=== PATIENT | male | born 1990 | race American Indian/Alaskan Native ===

== ENCOUNTER 2016-12-10 18:44 | Emergency (ER) | payer SELFPAY ==
[2016-12-10] MEDS ORDERED: DUONEB 0.5 MG-3 MG/3 ML SOLN IH ONE (22:54)
[2016-12-10] MEDS ORDERED: ATROVENT IH ONE (22:54)
[2016-12-10] MEDS: DUONEB 0.5 MG-3 MG/3 ML SOLN IH ONE ×2 (23:02→23:03)
[2016-12-11] MEDS ORDERED: DELTASONE PO ONE (00:18)
--- NOTE | 2016-12-11 00:18 | Emergency Department Report ---
ED Asthma HPI - General Chief Complaint: Adult Asthma Stated Complaint: ASTHMA Time Seen by Provider: 12/11/16 00:17 Source: patient Mode of arrival: Ambulatory Limitations: No Limitations - History of Present Illness Initial Comments: Patient here reports chest tightness and cough 3 hours Prior to coming to the emergency room. He denies any fever or chills. Denies any nausea vomiting or diarrhea. He said that he was getting no relief with his inhaler and he ran out of his prescription for Symbicort and albuterol. He reported to Triage nurse that he was on Spiriva. He said he is on Symbicort. He denies any difficulty breathing. MD Complaint: "asthma attack", wheezing Onset/Timin -: hour(s) Asthma History: history of frequent attac, history of prior ED visit Severity: similar to prior Context: recent URI, ran out of meds Associated Symptoms: dry cough Treatments Prior to Arrival: inhaled bronchodilator - Related Data Current Asthma Therapy: inhaled bronchodilator Previous Rx's Medication Instructions Recorded Last Taken Type Cetirizine HCl [ZyrTEC] 10 mg PO DAILY #30 capsule 10/31/16 Unknown Rx Fluticasone/Salmeterol [Advair 0 each IH DAILY #1 blst.w.dev 10/31/16 Unknown Rx 250-50 Diskus] ALBUTEROL NEB's [Proventil 0.083% 2.5 mg IH Q4-6H PRN #1 box 12/11/16 Unknown Rx NEBS] Albuterol Sulfate [Ventolin HFA] 2 puff IH Q4H PRN #1 inh 12/11/16 Unknown Rx Budesoni/Formoterol 80-4.5(Nf) 2 puff IH BID #1 inha 12/11/16 Unknown Rx [Symbicort 80-4.5 (Nf)] Prednisone [predniSONE 10 mg 10 mg PO .TAPER #1 tab.ds.pk 12/11/16 Unknown Rx (6-Day Pack, 21 Tabs)] Allergies Allergy/AdvReac Type Severity Reaction Status Date / Time No Known Allergies Allergy Verified 10/30/16 21:52 ED Review of Systems ROS: Stated complaint: ASTHMA Other details as noted in HPI Comment: All other systems reviewed and negative Constitutional: denies: chills, fever ENT: congestion. denies: throat pain Respiratory: cough, wheezing. denies: shortness of breath, SOB with exertion, SOB at rest, stridor Cardiovascular: chest pain (chest tightness with coughing). denies: palpitations, dyspnea on exertion, edema, syncope Gastrointestinal: denies: abdominal pain, nausea, vomiting, diarrhea Musculoskeletal: denies: back pain, arthralgia Skin: denies: rash Neurological: denies: headache ED Past Medical Hx - Past Medical History Previous Medical History?: Yes Hx Asthma: Yes - Surgical History Past Surgical History?: Yes Additional Surgical History: right finger - Family History Family history: no significant - Social History Smoking Status: Never Smoker Substance Use Type: Alcohol - Medications Home Medications: Home Medications Medication Instructions Recorded Confirmed Last Taken Type Cetirizine HCl [ZyrTEC] 10 mg PO DAILY #30 capsule 10/31/16 Unknown Rx Fluticasone/Salmeterol [Advair 0 each IH DAILY #1 blst.w.dev 10/31/16 Unknown Rx 250-50 Diskus] ALBUTEROL NEB's [Proventil 0.083% 2.5 mg IH Q4-6H PRN #1 box 12/11/16 Unknown Rx NEBS] Albuterol Sulfate [Ventolin HFA] 2 puff IH Q4H PRN #1 inh 12/11/16 Unknown Rx Budesoni/Formoterol 80-4.5(Nf) 2 puff IH BID #1 inha 12/11/16 Unknown Rx [Symbicort 80-4.5 (Nf)] Prednisone [predniSONE 10 mg 10 mg PO .TAPER #1 tab.ds.pk 12/11/16 Unknown Rx (6-Day Pack, 21 Tabs)] ED Physical Exam - General Limitations: No Limitations General appearance: alert, in no apparent distress - Head Head exam: Present: atraumatic, normocephalic, normal inspection - Eye Eye exam: Present: normal appearance, PERRL, EOMI. Absent: periorbital swelling , periorbital tenderness Pupils: Present: normal accommodation - ENT ENT exam: Present: normal exam, normal orophraynx, mucous membranes moist. Absent: TM's normal bilaterally, normal external ear exam - Neck Neck exam: Present: normal inspection, full ROM. Absent: tenderness, lymphadenopathy - Respiratory Respiratory exam: Present: wheezes, other (dry cough). Absent: respiratory distress, rales, rhonchi, stridor, chest wall tenderness - Cardiovascular Cardiovascular Exam: Present: regular rate, normal rhythm, normal heart sounds - GI/Abdominal GI/Abdominal exam: Present: soft, normal bowel sounds. Absent: distended, tenderness, guarding, rebound, rigid - Extremities Exam Extremities exam: Present: normal inspection, full ROM, normal capillary refill. Absent: tenderness, pedal edema, joint swelling - Neurological Exam Neurological exam: Present: alert, oriented X3, normal gait - Psychiatric Psychiatric exam: Present: normal affect, normal mood - Skin Skin exam: Present: warm, dry, intact, normal color. Absent: rash ED Course Vital Signs 12/10/16 12/10/16 20:48 23:06 Temperature 98.2 F Pulse Rate 95 H Pulse Rate [ 94 H Throughout] Respiratory 20 Rate Respiratory 16 Rate [ Throughout] Blood Pressure 141/76 O2 Sat by Pulse 97 Oximetry Vital Signs 12/10/16 12/10/16 12/11/16 20:48 23:06 01:29 Temperature 98.2 F 99.0 F Pulse Rate 95 H 84 Pulse Rate [ 94 H Throughout] Respiratory 20 20 Rate Respiratory 16 Rate [ Throughout] Blood Pressure 141/76 Blood Pressure 118/70 [Left] O2 Sat by Pulse 97 98 Oximetry - Reevaluation(s) Reevaluation #1: 12/11/16 01:19 Patient received nebulizer treatment along with steroids and emergency room. Upon reevaluation, lungs sounds clear and patient said is feeling better. ED Medical Decision Making - Medical Decision Making ED course: Patient received DuoNeb times one treatment in triage area and said he wasn't feeling better. She received albuterol 10 mg along with Xopenex 0.5 mg in emergency room. He Also received Deltasone 60 mg by mouth. Upon reevaluation patient said he was feeling much better and is ready to go. I discussed the patient that he needs to follow-up with primary care physician in 2-3 days and if he does not have a primary care physician that he needs to follow-up with outside Medical Center or return to the emergency room if symptoms return. Discharged home with prescription for albuterol inhaler, albuterol nebulizer, prednisone and Symbicort. He voiced understanding of follow-up instructions. Critical care attestation.: If time is entered above; I have spent that time in minutes in the direct care of this critically ill patient, excluding procedure time. ED Disposition Clinical Impression: Acute asthma exacerbation Qualifiers: Asthma severity: moderate persistent Qualified Code(s): J45.41 - Moderate persistent asthma with (acute) exacerbation Disposition: DISCHARGED TO HOME OR SELFCARE Is pt being admited?: No Does the pt Need Aspirin: No Condition: Stable Instructions: Asthma (ED) Additional Instructions: Please return to the emergency room if his symptoms worsen or does not get better with nebulizer treatment. Please his medication as prescribed. Follow-up with primary care physician or outside Medical Center as discussed Prescriptions: ALBUTEROL NEB's [Proventil 0.083% NEBS] 2.5 mg IH Q4-6H PRN #1 box PRN Reason: Wheezing Budesoni/Formoterol 80-4.5(Nf) [Symbicort 80-4.5 (Nf)] 2 puff IH BID #1 inha Albuterol Sulfate [Ventolin HFA] 2 puff IH Q4H PRN #1 inh PRN Reason: Wheezing Prednisone [predniSONE 10 mg (6-Day Pack, 21 Tabs)] 10 mg PO .TAPER #1 tab.ds.pk Referrals: PRIMARY CARE, [Primary Care Provider] - 2-3 Days [facility] [Outside] - 2-3 Days Forms: Work/School Release Form(ED), Accompanied Note
[2016-12-11 01:30] VITALS: BP 118/70
== END 2016-12-11 01:31 | disposition home or self-care (01) ==
LOC: ED 18:44
DX: J45.41 Moderate persistent asthma with (acute) exacerbation (principal)
CPT/HCPCS: 94640; 99283; J7512

== ENCOUNTER 2016-12-29 13:40 | Emergency (ER) | payer SELFPAY ==
--- NOTE | 2016-12-29 13:49 | Emergency Department Report ---
Stated Complaint: ASTHMA ATTACK Time Seen by Provider: 12/29/16 13:44 - HPI History of Present Illness: Patient is a 26-year-old male with a history of asthma who presents to ED complaining of asthma exacerbation times today. Patient states he was at work when he started to feel shortness of breath patient states he slipped his rescue name of but did not work. Patient states he has had an side in a long time. Patient takes states he vomited prednisone but has been out of his medication. Patient states he did not get better and shortness of breath got worse so he called the ambulance and was brought to the ER. Patient denies fever/chills/nausea/vomiting/prior illness/chest pain/abdominal pain - ROS Review of Systems: As noted in HPI - Exam Physical Exam: GENERAL: Alert and oriented x3, in some mild respiratory distress, Normal Gait, atraumatic. HEAD: Head is normocephalic and a-traumatic. MOUTH:Mouth is well hydrated and without lesions. Tonsils nonerythematous or swollen, Uvula midline, Tongue not elevated. Mucous membranes are moist. Posterior pharynx clear, no exudate or lesions. Patent airways. LUNGS: Symetrical with respiration, wheezing bilaterally anterior and posterior , no rales or crackles, no use of accessory muscles HEART: S1, S2 present, regular rate and rhythm without murmur, no rubs, no gallops. ABDOMEN: No organomegaly was noted,Positive bowel sounds, soft, and non- distended. . Nontender to palpation on all Quadrants, NO CVA tenderness. SKIN: Diaphoretic forehead Warm, No lesions, No ulceration or induration present. MSE screening note: Focused history and physical exam performed. Due to findings the following was ordered: ED Medical Decision Making - Medical Decision Making 26-year-old male presents with asthma exacerbation. Tachypneic and tachycardiac with elevated blood pressure. O2 nasal cannula placed Respiratory called for a breathing treatment of DuoNeb. Solu-Medrol 125 mg IM ordered. Administered. Reassess patient in 20-30 minutes, lung exam and repeat vital signs ED Disposition for MSE Condition: Stable
[2016-12-29] MEDS: DUONEB 0.5 MG-3 MG/3 ML SOLN IH ONE ×2 (14:05→14:50)
[2016-12-29] MEDS ORDERED: PROVENTIL IH ONE ×4 (14:20→17:08)
[2016-12-29] MEDS ORDERED: MAGNESIUM SULFATE 2GM/50ML 2 GM in D5W 100 ML IV ONE (15:04)
--- NOTE | 2016-12-29 15:20 | Emergency Department Report ---
ED Shortness of Breath HPI - General Chief Complaint: Dyspnea/Respdistress Stated Complaint: ASTHMA ATTACK Time Seen by Provider: 12/29/16 14:57 Source: patient Mode of arrival: Ambulatory Limitations: No Limitations - History of Present Illness Initial Comments: 26-year-old male presents to the emergency department complaining of difficulty breathing beginning at approximately noon today. Patient reports chest tightness and wheezing. There has been cough productive of white frothy sputum. Patient denies fever. Patient has been using his albuterol inhaler without relief. Patient states he has never had to be placed on a ventilator before. There are no other complaints. Prior to being placed in a room, the patient was administered 125 mg of Solu-Medrol, 20 mg of albuterol, and a total of 1 mg of Atrovent. Complaint: "asthma attack" -: Sudden, This afternoon Time: 12:00 Pain Scale: 0 Consistency: constant Improves With: nothing Worsens With: nothing Known History Of: asthma Associated Symptoms: chest pain (tightness), cough - Related Data Previous Rx's Medication Instructions Recorded Last Taken Type Cetirizine HCl [ZyrTEC] 10 mg PO DAILY #30 capsule 10/31/16 Unknown Rx Fluticasone/Salmeterol [Advair 0 each IH DAILY #1 blst.w.dev 10/31/16 Unknown Rx 250-50 Diskus] ALBUTEROL NEB's [Proventil 0.083% 2.5 mg IH Q4-6H PRN #1 box 12/11/16 Unknown Rx NEBS] Budesoni/Formoterol 80-4.5(Nf) 2 puff IH BID #1 inha 12/11/16 Unknown Rx [Symbicort 80-4.5 (Nf)] Albuterol Sulfate [Ventolin HFA] 2 puff IH Q4H PRN #1 inh 12/29/16 Unknown Rx predniSONE [Deltasone] 3 tab PO QDAY #15 tab 12/29/16 Unknown Rx Allergies Allergy/AdvReac Type Severity Reaction Status Date / Time No Known Allergies Allergy Verified 10/30/16 21:52 ED Review of Systems ROS: Stated complaint: ASTHMA ATTACK Other details as noted in HPI Comment: All other systems reviewed and negative Respiratory: cough, shortness of breath, wheezing Cardiovascular: chest pain ED Past Medical Hx - Past Medical History Previous Medical History?: Yes Hx Asthma: Yes - Surgical History Past Surgical History?: Yes Additional Surgical History: right finger - Family History Family history: no significant - Social History Smoking Status: Never Smoker Substance Use Type: None - Medications Home Medications: Home Medications Medication Instructions Recorded Confirmed Last Taken Type Cetirizine HCl [ZyrTEC] 10 mg PO DAILY #30 capsule 10/31/16 Unknown Rx Fluticasone/Salmeterol [Advair 0 each IH DAILY #1 blst.w.dev 10/31/16 Unknown Rx 250-50 Diskus] ALBUTEROL NEB's [Proventil 0.083% 2.5 mg IH Q4-6H PRN #1 box 12/11/16 Unknown Rx NEBS] Budesoni/Formoterol 80-4.5(Nf) 2 puff IH BID #1 inha 12/11/16 Unknown Rx [Symbicort 80-4.5 (Nf)] Albuterol Sulfate [Ventolin HFA] 2 puff IH Q4H PRN #1 inh 12/29/16 Unknown Rx predniSONE [Deltasone] 3 tab PO QDAY #15 tab 12/29/16 Unknown Rx ED Physical Exam - General Limitations: No Limitations General appearance: alert, in distress (mild respiratory distress) - Head Head exam: Present: atraumatic, normocephalic - Eye Eye exam: Present: normal appearance, PERRL, EOMI - ENT ENT exam: Present: normal exam, normal orophraynx, mucous membranes moist - Neck Neck exam: Present: normal inspection, full ROM. Absent: tenderness - Respiratory Respiratory exam: Present: respiratory distress (moderate tachypnea), wheezes ( faint expiratory wheezes noted diffuse bilateral posterior), decreased breath sounds (diffuse bilateral posterior) - Cardiovascular Cardiovascular Exam: Present: normal rhythm, tachycardia, normal heart sounds - GI/Abdominal GI/Abdominal exam: Present: soft, normal bowel sounds. Absent: distended, tenderness - Extremities Exam Extremities exam: Present: normal inspection, full ROM. Absent: tenderness - Back Exam Back exam: Present: normal inspection, full ROM. Absent: tenderness - Neurological Exam Neurological exam: Present: alert, oriented X3. Absent: motor sensory deficit - Skin Skin exam: Present: warm, dry, intact ED Course Vital Signs 12/29/16 12/29/16 12/29/16 13:41 14:15 14:18 Temperature 97.5 F L Pulse Rate 117 H Pulse Rate [ 113 H 116 H Posterior Bilateral Throughout] Respiratory 28 H Rate Respiratory 20 22 Rate [Posterior Bilateral Throughout] Blood Pressure 152/118 Blood Pressure [Left] O2 Sat by Pulse 97 Oximetry 12/29/16 12/29/16 12/29/16 14:25 14:45 14:50 Temperature Pulse Rate Pulse Rate [ 104 H 113 H 105 H Posterior Bilateral Throughout] Respiratory Rate Respiratory 20 20 20 Rate [Posterior Bilateral Throughout] Blood Pressure Blood Pressure [Left] O2 Sat by Pulse Oximetry 12/29/16 12/29/16 12/29/16 14:58 15:05 15:10 Temperature Pulse Rate Pulse Rate [ 118 H 118 H Posterior Bilateral Throughout] Respiratory 26 H Rate Respiratory 20 20 Rate [Posterior Bilateral Throughout] Blood Pressure Blood Pressure [Left] O2 Sat by Pulse Oximetry 12/29/16 12/29/16 12/29/16 17:07 17:25 17:46 Temperature Pulse Rate 106 H Pulse Rate [ 118 H 116 H Posterior Bilateral Throughout] Respiratory 20 Rate Respiratory 22 20 Rate [Posterior Bilateral Throughout] Blood Pressure Blood Pressure 98/65 [Left] O2 Sat by Pulse 97 Oximetry ED Medical Decision Making - Lab Data Result diagrams: 12/29/16 15:13 12/29/16 15:13 - Medical Decision Making Lab results reviewed and discussed with the patient. After multiple nebulizer treatments, the patient reports feeling much better. Lung sounds are now clear to auscultation. Patient will be discharged home on oral steroids to follow up with a primary care physician. - Differential Diagnosis asthma exacerbation Critical care attestation.: If time is entered above; I have spent that time in minutes in the direct care of this critically ill patient, excluding procedure time. ED Disposition Clinical Impression: Acute asthma exacerbation Qualifiers: Asthma severity: unspecified severity Qualified Code(s): J45.901 - Unspecified asthma with (acute) exacerbation Disposition: DISCHARGED TO HOME OR SELFCARE Is pt being admited?: No Condition: Stable Instructions: Asthma (ED) Prescriptions: predniSONE [Deltasone] 3 tab PO QDAY #15 tab Albuterol Sulfate [Ventolin HFA] 2 puff IH Q4H PRN #1 inh PRN Reason: Wheezing Referrals: HEMAL HORVATH MD [Staff Physician] - 3-5 Days Time of Disposition: 17:48
--- NOTE | 2016-12-29 15:23 | Admit Criteria Form ---
Admission Criteria Documentation: ASTHMA Clinical Indications for Admission to Inpatient Care (Place 'X' for any and all applicable criteria): Admission is indicated for ANY ONE of the following (1)(2)(3)(4)(5): [ ]I. Absent or markedly diminished breath sounds (silent chest) [ ]II. Oxygen saturation < 92% [ ]III. PaCO2 = / > 42 mm Hg (5.6 kPa) [ ]IV. Peak expiratory flow rate < 40% of predicted or personal best after treatment. [ ]V. Peak expiratory flow rate < 33% of predicted or personal before after treatment [ ]. Change in mental status [ ]VII. Ventilatory support required [ ]VIII. PaO2 < 60 mm Hg (8.0 kPa) [ ]IX. Cyanosis [ ]X. Cardiac dysrhythmia (e.g., bradycardia) [ ]XI. Hemodynamic instability [ ]XII. Radiographic evidence of complication requiring inpatient treatment (e.g., pneumonia, pneumothorax) [X ]XIII. Inpatient admission required rather than observation care (also use Asthma: Observation Care guideline as appropriate) because of ANY ONE of the following: [ X]a) Respiratory finding that is severe or persistent (eg, dyspnea, tachypnea, accessory muscle use) [ ]b) Airflow measurements less than 60% of predicted or personal best that persist (e.g., over 24 hours) or worsen despite treatments [ ]c) Supplemental oxygen or respiratory treatments for over 24 hours that are performable only in acute inpatient setting [ ]d) Other condition, treatment or monitoring requiring inpatient admission. Extended stay beyond goal length of stay may be needed for (26)(27)(28): [ ]a) Severe respiratory failure (23) (29) (30) [ ]b) Secondary causes and complications (25) [ ]c) Status asthmaticus [ ]d) Chronic obstructive asthma [ ]e) Older patients (29) [ ]f) Slow resolution [ ]g) Clinically significant exacerbation of comorbidities (eg, anabella. heart failure, atrial fibrillation) The original [employer] content created by [employer] has been revised. The portions of the content which have been revised are identified through the use of italic text or in bold, and [employer] has neither reviewed nor approved the modified material. All other unmodified content is copyright [employer] Please see references footnoted in the original [facility] edition 2016
[2016-12-29 15:40] LABS: Anion Gap 17 mmol/L; BUN/Creatinine Ratio 6.66; Blood Urea Nitrogen 6 mg/dL (9-20); Calcium 8.9 mg/dL (8.4-10.2); Carbon Dioxide 24 mmol/L (22-30); Chloride 100.8 mmol/L (98-107); Glucose 96 mg/dL (75-100); Magnesium 2.2 mg/dL (1.7-2.3); Potassium 3.7 mmol/L (3.6-5.0); Sodium 138 mmol/L (137-145)
[2016-12-29 15:45] LABS: Basophils % (Auto) 1.2 % (0.0-1.8); Eosinophils % (Auto) 5.6 % (0.0-4.3); Hematocrit 49.7 % (35.5-45.6); Hemoglobin 16.8 gm/dl (11.8-15.2); Mean Corpuscular HGB Conc 34 % (32-34); Mean Corpuscular Hemoglobin 30 pg (28-32); Mean Corpuscular Volume 90 fl (84-94); Platelet Count 212 K/mm3 (140-440); Red Blood Count 5.54 M/mm3 (3.65-5.03); Red Cell Distribution Width 13.8 % (13.2-15.2); White Blood Count 8.1 K/mm3 (4.5-11.0)
[2016-12-29] MEDS ORDERED: MAGNESIUM SULFATE 2GM/50ML 50 ML IV ONE (16:00)
[2016-12-29 17:08] VITALS: BP 98/65
== END 2016-12-29 17:59 | disposition home or self-care (01) ==
LOC: ED 13:40
DX: J45.901 Unspecified asthma with (acute) exacerbation (principal)
CPT/HCPCS: 36415; 80048; 83735; 85025; 94640; 96372; 96374; 99284; J2930; J3475

== ENCOUNTER 2020-06-11 09:26 | Emergency (ER) | payer SELFPAY ==
[2020-06-11 09:32] VITALS: BP 139/91
--- NOTE | 2020-06-11 11:05 | XRay Report ---
CHEST 2 VIEWS INDICATION: SOB, asthma. COMPARISON: 12/04/2011 FINDINGS: Support devices: None. Heart: Within normal limits. Lungs/Pleura: No acute air space or interstitial disease. No significant pleural effusion. IMPRESSION: No acute findings. Signer Name: Mj Carlson MD Signed: 06/11/2020 11:00 AM Workstation Name: [id number]
[2020-06-11] MEDS ORDERED: predniSONE 50 MG TAB PO STA (12:26)
[2020-06-11] MEDS ORDERED: IPRATROPIUM/ALBUTEROL SULFATE 3 ML AMPUL.NEB IH ONE (12:26)
--- NOTE | 2020-06-11 12:30 | Emergency Department Report ---
ED Asthma HPI - General Chief Complaint: Adult Asthma Stated Complaint: ASTHMA Time Seen by Provider: 06/11/20 12:17 Source: patient Mode of arrival: Ambulatory Limitations: No Limitations - History of Present Illness MD Complaint: wheezing -: Gradual, days(s) (3) Asthma History: childhood onset Severity: mild, moderate Context: recent URI Associated Symptoms: dry cough Treatments Prior to Arrival: inhaled bronchodilator - Related Data Previous Rx's Medication Instructions Recorded Last Taken Type Cetirizine HCl [ZyrTEC] 10 mg PO DAILY #30 capsule 10/31/16 Unknown Rx Fluticasone/Salmeterol (Nf) 0 each IH DAILY #1 blst.w.dev 10/31/16 Unknown Rx [Advair 250-50 Diskus] ALBUTEROL NEB's [Proventil 0.083% 2.5 mg IH Q4-6H PRN #1 box 12/11/16 Unknown Rx NEBS] Budesoni/Formoterol 80-4.5(Nf) 2 puff IH BID #1 inha 12/11/16 Unknown Rx [Symbicort 80-4.5 (Nf)] Albuterol Sulfate [Ventolin HFA] 2 puff IH Q4H PRN #1 inh 12/29/16 Unknown Rx Budesonide [Pulmicort] 0.5 mg IH Q12HR #60 nebu 12/29/16 Unknown Rx predniSONE [Deltasone] 3 tab PO QDAY #15 tab 12/29/16 Unknown Rx Montelukast [Singulair] 10 mg PO QPM #14 tablet 06/11/20 Unknown Rx predniSONE [Deltasone] 50 mg PO QDAY #5 tab 06/11/20 Unknown Rx Allergies Allergy/AdvReac Type Severity Reaction Status Date / Time No Known Allergies Allergy Verified 10/30/16 21:52 ED Review of Systems ROS: Stated complaint: ASTHMA Other details as noted in HPI Comment: All other systems reviewed and negative ED Past Medical Hx - Past Medical History Previous Medical History?: Yes Hx Asthma: Yes - Surgical History Additional Surgical History: right finger - Social History Smoking Status: Never Smoker Substance Use Type: None - Medications Home Medications: Home Medications Medication Instructions Recorded Confirmed Last Taken Type Cetirizine HCl [ZyrTEC] 10 mg PO DAILY #30 capsule 10/31/16 Unknown Rx Fluticasone/Salmeterol (Nf) 0 each IH DAILY #1 blst.w.dev 10/31/16 Unknown Rx [Advair 250-50 Diskus] ALBUTEROL NEB's [Proventil 0.083% 2.5 mg IH Q4-6H PRN #1 box 12/11/16 Unknown Rx NEBS] Budesoni/Formoterol 80-4.5(Nf) 2 puff IH BID #1 inha 12/11/16 Unknown Rx [Symbicort 80-4.5 (Nf)] Albuterol Sulfate [Ventolin HFA] 2 puff IH Q4H PRN #1 inh 12/29/16 Unknown Rx Budesonide [Pulmicort] 0.5 mg IH Q12HR #60 nebu 12/29/16 Unknown Rx predniSONE [Deltasone] 3 tab PO QDAY #15 tab 12/29/16 Unknown Rx Montelukast [Singulair] 10 mg PO QPM #14 tablet 06/11/20 Unknown Rx predniSONE [Deltasone] 50 mg PO QDAY #5 tab 06/11/20 Unknown Rx ED Physical Exam - General Limitations: No Limitations General appearance: alert, in no apparent distress - Head Head exam: Present: atraumatic, normocephalic - Eye Eye exam: Present: normal appearance, PERRL, EOMI - ENT ENT exam: Present: normal exam, normal orophraynx, mucous membranes moist, TM's normal bilaterally - Neck Neck exam: Present: normal inspection, full ROM - Respiratory Respiratory exam: Present: normal lung sounds bilaterally. Absent: respiratory distress, wheezes, rales, chest wall tenderness, accessory muscle use, decreased breath sounds - Cardiovascular Cardiovascular Exam: Present: regular rate, normal rhythm. Absent: systolic murmur, diastolic murmur, rubs, gallop - GI/Abdominal GI/Abdominal exam: Present: soft, normal bowel sounds - Rectal Rectal exam: Present: deferred - Extremities Exam Extremities exam: Present: normal inspection, normal capillary refill - Back Exam Back exam: Present: normal inspection. Absent: CVA tenderness (R), CVA tenderness (L) - Neurological Exam Neurological exam: Present: alert, oriented X3, CN II-XII intact, normal gait - Psychiatric Psychiatric exam: Present: normal affect, normal mood. Absent: anxious, manic, homicidal ideation - Skin Skin exam: Present: warm, dry, intact, normal color. Absent: rash, cyanosis, diaphoretic, vesicles ED Course Vital Signs 06/11/20 09:30 Temperature 98.6 F Pulse Rate 111 H Respiratory 20 Rate Blood Pressure 139/91 O2 Sat by Pulse 93 Oximetry ED Medical Decision Making - Radiology Data Radiology results: report reviewed [facility] [address] [place] [address] XRay Report Signed Patient: MARTIN CORTÉS MR#: [id number] : 1990 Acct:[id number] Age/Sex: 29 / M ADM Date: 06/11/20 Loc: ED Attending Dr: Ordering Physician: SILKE LUCIO MD Date of Service: 06/11/20 Procedure(s): XR chest routine 2V Accession Number(s): [id number] cc: SILKE LUCIO MD Fluoro Time In Minutes: CHEST 2 VIEWS INDICATION: SOB, asthma. COMPARISON: 12/04/2011 FINDINGS: Support devices: None. Heart: Within normal limits. Lungs/Pleura: No acute air space or interstitial disease. No significant pleural effusion. IMPRESSION: No acute findings. Signer Name: Mj Carlson MD Signed: 06/11/2020 11:00 AM Workstation Name: [id number] Transcribed By: ES Dictated By: Mj Carlson MD Electronically Authenticated By: Mj Carlson MD Signed Date/Time: 06/11/20 1100 - Medical Decision Making No altered mental status, saddle respirations, belly breathing or other signs of impending ventilatory failure. No intubations or recent admissions to the hospital for asthma. Unlikely pneumonia, CHF, COPD, GERD Workup Review include a chest x-ray which was normal she also received steroids and albuterol Therapies: Prednisone 50 mg PO. Albuterol nebulizer Reassessment: Patient improved with albuterol and ipratropium in less than 3 hours. Disposition: Discharge home with return precautions. Advised to follow up with primary care physician within next 24-48 hours. Aside from this acute exacerbation patient has been well controlled on baseline home regimen. Rx short steroid course, albuterol, Singulair, Flovent Critical care attestation.: If time is entered above; I have spent that time in minutes in the direct care of this critically ill patient, excluding procedure time. ED Disposition Clinical Impression: Acute asthma exacerbation Disposition: TO HOME OR SELFCARE Is pt being admited?: No Does the pt Need Aspirin: No Condition: Stable Instructions: Asthma (ED) Prescriptions: predniSONE [Deltasone] 50 mg PO QDAY #5 tab Montelukast [Singulair] 10 mg PO QPM #14 tablet Referrals: PRIMARY CARE, [Primary Care Provider] - 3-5 Days [facility] [Provider Group] - 3-5 Days
== END 2020-06-11 13:30 | disposition home or self-care (01) ==
LOC: ED 09:26
DX: J45.901 Unspecified asthma with (acute) exacerbation (principal); Z79.899 Other long term (current) drug therapy
CPT/HCPCS: 71046; 99283; J7512